=== PATIENT | female | born 1945 | race Caucasian/White ===

== ENCOUNTER 2016-09-20 08:18 | Day surgery (SDC) | payer MEDICARE, OTHER ==
--- NOTE | ~2016-09-20 | EGD ---
EGD REPORT [facility] [address] [address] NAME: CYNDIE PITT : 47 STATUS : REG [facility]#: [id number] AGE: 71 ADM/REG DATE : 09/20/16 MR#: [id number] REPORT SERV DATE: 09/20/16 DICTATED BY: HEATH HILL DATE: 09/20/16 REPORT STATUS : Draft TRANSCRIBED BY: [facility] DATE: 09/20/16 [facility] Center Patient Name: Cyndie Pitt Date of : 1945 Attending MD: HEATH HILL MD Procedure Date No Time: 09/20/2016 Procedure: Upper GI endoscopy Indications: Follow-up of Conte's esophagus Referring MD: YANETH TAYLOR Medicines: Monitored Anesthesia Care Complications: No immediate complications. Procedure: Pre-Anesthesia Assessment: - ASA Grade Assessment: III - A patient with severe systemic disease. After obtaining informed consent, the endoscope was passed under direct vision. Throughout the procedure, the patient's blood pressure, pulse, and oxygen saturations were monitored continuously. The GIF [id number] was introduced through the mouth, and advanced to the second part of duodenum. The upper GI endoscopy was accomplished without difficulty. The patient tolerated the procedure well. Findings: The Z-line was irregular and was found at the gastroesophageal junction. Biopsies were taken with a cold forceps for histology. Localized mildly erythematous mucosa without bleeding was found in the gastric antrum. Biopsies were taken with a cold forceps for histology. The duodenal bulb and 2nd part of the duodenum were normal. The cardia and gastric fundus were normal on retroflexion. Impression: - Z-line irregular, at the gastroesophageal junction. Biopsied. - Erythematous mucosa in the antrum. Biopsied. - Normal duodenal bulb and 2nd part of the duodenum. Recommendation: - Patient has a contact number available for emergencies. The signs and symptoms of potential delayed complications were discussed with the patient. Return to normal activities tomorrow. Written discharge instructions were provided to the patient. - Regular diet. - Continue present medications. - Await pathology results. - Repeat the upper endoscopy in 3 years for surveillance. EGD REPORT [address] [address] NAME: CYNDIE PITT : [birth year] STATUS : [place] [facility] [place]#: [id number] AGE: 71 ADM/REG DATE : 09/20/16 MR#: [id number] REPORT SERV DATE: 09/20/16 DICTATED BY: HEATH HILL DATE: 09/20/16 REPORT STATUS : Draft TRANSCRIBED BY: [employer] DATE: 09/20/16 Procedure Code(s): --- Professional --- 12373, Esophagogastroduodenoscopy, flexible, transoral; with biopsy, single or multiple Diagnosis Code(s): --- Professional --- K22.8, Other specified diseases of esophagus K31.9, Disease of stomach and duodenum, unspecified K22.70, Conte's esophagus without dysplasia CPT copyright 2013 [employer]. All rights reserved. The codes documented in this report are preliminary and upon surface room shop optician review may be revised to meet current compliance requirements. HEATH HILL MD 09/20/2016 10:30 AM This report has been signed electronically. Number of Addenda: 0 Note Initiated On: 09/20/2016 10:09 AM Scope Withdrawal Time 0 hours 0 minutes 0 seconds [address] [id number]
[~2016-09-20 08:18] MED LIST: ASA5GR PO; ASAB PO; CALTRA600D PO; DIOV160 PO; FISH OIL1200 MG PO; LOP25 PO; MAGOX4 PO; NEXIUM40 PO; NITROSTAT0.4 MG SL; NORV5 PO; PROBIOTIC PO; VITAMIN D31000 UNIT PO; ZOCOR20 PO; [UNRECOGNIZED DRUG - OTHER] PO
== END 2016-09-20 23:59 | disposition home or self-care (01) ==
LOC: DMU 08:18
PROVIDERS: Internal Medicine Gastroenterology
PROC: 0DB68ZX Excision of Stomach, Via Natural or Artificial Opening Endoscopic, Diagnostic (ICD-10-PCS; 2016-09-20)
PROC: 0DB48ZX Excision of Esophagogastric Junction, Via Natural or Artificial Opening Endoscopic, Diagnostic (ICD-10-PCS; principal; 2016-09-20 09:30)
DX: K29.50 Unspecified chronic gastritis without bleeding (principal); K21.0 Gastro-esophageal reflux disease with esophagitis; K22.8 Other specified diseases of esophagus; I10 Essential (primary) hypertension; E78.00 Pure hypercholesterolemia, unspecified; M19.90 Unspecified osteoarthritis, unspecified site; Z79.82 Long term (current) use of aspirin; Z79.899 Other long term (current) drug therapy
CPT/HCPCS: 88305